=== PATIENT | female | born 1955 | race Caucasian/White ===

== ENCOUNTER → 2017-04-04 | Outpatient (CLI) | payer OTHER ==
[~2017-04-04] MED LIST: ACET-1600 PO; ALLO100T30 PO; CHOL400D3 BC; CITA10TA4 PO; DOXY100C2 PO; FLAX100013 PO; FOLI0.8T2 PO; FURO40TA6 PO; GABA-826 PO; HYDR-3237 PO; LANS15CA60 PO; LECI400C PO; LEVO125T PO; LOSA100T6 PO; OXYC10TA6 PO; PREG100C PO; RIVA10TA PO; TRAM50TA2 PO; TRAZ50TA18 PO; VERA180T56 PO; [UNRECOGNIZED DRUG - OTHER] PO
== END | disposition home or self-care (01) ==
LOC: CVU 13:08
PROVIDERS: ATTEND Internal Medicine Cardiovascular Disease
DX: I08.2 Rheumatic disorders of both aortic and tricuspid valves (principal); I77.819 Aortic ectasia, unspecified site; I10 Essential (primary) hypertension
CPT/HCPCS: 93306

== ENCOUNTER 2019-04-10 10:51 | Outpatient (CLI) | payer MEDICARE, OTHER ==
[~2019-04-10 10:51] MED LIST changes: +LOSA100T14 PO; -LOSA100T6 PO; -RIVA10TA PO; +RIVA10TA2 PO; -TRAZ50TA18 PO; +TRAZ50TA66 PO; -VERA180T56 PO; +VERA180T6 PO
== END 2019-04-10 23:59 | disposition home or self-care (01) ==
LOC: CVU 10:51
PROVIDERS: ATTEND Internal Medicine Cardiovascular Disease
DX: I08.0 Rheumatic disorders of both mitral and aortic valves (principal); I10 Essential (primary) hypertension
CPT/HCPCS: 93306